=== PATIENT | male | born 1955 | race Two or more races ===

== ENCOUNTER 2025-02-03 17:27 | Emergency (ER) | payer OTHER ==
[~2025-02-03] VITALS: Ht 170.2 cm; Wt 77.1 kg
[~2025-02-03 17:27] MED LIST: FIORICET 50-321 EACH PO; KETO10TA2 PO
[2025-02-03] MEDS ORDERED: RINGERS SOLUTION,LACTATED 1,000 ML IV STA (18:28)
[2025-02-03] MEDS ORDERED: KETOROLAC TROMETHAMINE 30 MG VIAL IV STA (18:29)
[2025-02-03] MEDS ORDERED: MORPHINE SULFATE 4 MG/ML VIAL IV STA (18:29)
[2025-02-03] MEDS ORDERED: HYOSCYAMINE SULFATE 0.125 MG TAB.SUBL SL ONE (18:30)
[2025-02-03] MEDS ORDERED: HYOSCYAMINE SULFATE 0.125 MG TAB.SUBL ONE (18:35)
[2025-02-03] MEDS ORDERED: KETOROLAC TROMETHAMINE 30 MG VIAL ONE (18:35)
[2025-02-03 18:52] LABS: HEMATOCRIT 45.4 % (39.0-48.0); HEMOGLOBIN 15.5 g/dL (13-16.00); MEAN CORPUSCULAR HEMOGLOBIN 31.7 pg (27.00-32.0); MEAN CORPUSCULAR HGB CONC 34.1 g/dl (32.0-36.0); PLATELET COUNT 208 K/uL (150-450); RED BLOOD COUNT 4.89 M/uL (4.00-6.00); RED CELL DISTRIBUTION WIDTH 14.3 % (11.5-14.5)
[2025-02-03 19:26] LABS: ALBUMIN 4.2 gm/dL (3.4-5.0); BILIRUBIN TOTAL 0.42 mg/dL (0.3-1.2); CALCIUM 9.2 mg/dL (8.5-10.1); CREATININE SERUM 0.99 mg/dL (0.70-1.30); GFR 74.95; GLOBULINA 3.5 G/DL (2.4-3.5); POTASSIUM 5.07 mEq/L (3.5-5.1); TOTAL PROTEIN 7.7 gm/dL (6.4-8.2)
[2025-02-03] MEDS ORDERED: PIPERACILLIN/TAZOBACTAM SODIUM 3.375 GM VIAL IV STA (19:52)
== END 2025-02-03 22:14 | disposition home or self-care (01) ==
LOC: ER 17:28
DX: K59.00 Constipation, unspecified (principal); R10.32 Left lower quadrant pain
CPT/HCPCS: 36415; 74176; 96365; 99283; J1885; J2270; J2543